=== PATIENT | male | born 1995 | race Two or more races ===

== ENCOUNTER 2022-06-26 17:26 | Emergency (ER) | payer OTHER ==
[~2022-06-26] VITALS: Ht 172.7 cm; Wt 97.5 kg
[2022-06-26] MEDS ORDERED: ZOFRAN8 MG PO (20:38)
[2022-06-26] MEDS ORDERED: PEPCID AC20 MG PO (20:38)
== END 2022-06-26 21:05 | disposition home or self-care (01) ==
LOC: ER 17:26
DX: K52.9 Noninfective gastroenteritis and colitis, unspecified (principal); R11.2 Nausea with vomiting, unspecified